=== PATIENT | female | born 1995 | race Hispanic/Latino ===

== ENCOUNTER 2017-07-25 00:51 | Emergency (ER) | payer SELFPAY ==
[2017-07-25 01:07] VITALS: BP 105/64; PULSE 90; RESP 16; TEMP 98.1; O2SAT 98
--- NOTE | 2017-07-25 01:58 | C.PDOC ---
History Of Present Illness Pt was BIBEMS due to public alcohol intoxication. Time Seen by Provider: 07/25/17 01:35 Chief Complaint (Nursing): Substance Abuse History Per: Patient, EMS Onset/Duration Of Symptoms: Unknown (tonight) Current Symptoms Are (Timing): Still Present Suicide/Self Injury Attempted (Context): None Modifying Factor(s): Alcohol Severity: Moderate Associated Symptoms: denies: Suicidal Thoughts, Suicidal Plan Additional History Per: Prior Records Past Medical History Reviewed: Historical Data, Nursing Documentation, Vital Signs Vital Signs: Last Vital Signs Temp 98.1 F 07/25/17 01:03 Pulse 90 07/25/17 01:03 Resp 16 07/25/17 01:03 BP 105/64 07/25/17 01:03 Pulse Ox 98 07/25/17 01:03 - Medical History PMH: No Chronic Diseases Family History: States: Unknown Family Hx - Social History Hx Alcohol Use: Yes Hx Substance Use: No Review Of Systems Except As Marked, All Systems Reviewed And Found Negative. Constitutional: Negative for: Fever Cardiovascular: Negative for: Chest Pain Respiratory: Negative for: Shortness of Breath Gastrointestinal: Negative for: Vomiting, Abdominal Pain Musculoskeletal: Negative for: Neck Pain Neurological: Negative for: Weakness, Numbness, Seizures Psych: Negative for: Psychosis Physical Exam - Physical Exam Appears: Non-toxic, No Acute Distress, Other (AOB, intoxicated) Skin: Normal Color, Warm, Dry, No Rash Head: Atraumatic, Normacephalic Eye(s): bilateral: PERRL Neck: Normal ROM, No Midline Cervical Tenderness, No Step Off Deformity, Supple Cardiovascular: Rhythm Regular Respiratory: Normal Breath Sounds, No Accessory Muscle Use Gastrointestinal/Abdominal: Soft, No Tenderness Extremity: Normal ROM Neurological/Psych: Oriented x3, Normal Motor, Normal Sensation Gait: Steady ED Course And Treatment O2 Sat by Pulse Oximetry: 98 Pulse Ox Interpretation: Normal Progress Note: Pt's friend (Emaunel Mazariegos) came at pt's request and took pt home. Disposition Counseled Patient/Family Regarding: Diagnosis, Need For Followup - Disposition Disposition: HOME/ ROUTINE Disposition Time: 01:57 Condition: STABLE Additional Instructions: Avoid alcohol. Follow up with your doctor. Return to the ER if you develop worsening of symptoms or if you have any other concerns. Instructions: Alcohol Intoxication (ED) Forms: AT Internet (Irish) - Clinical Impression Clinical Impression: Alcohol intoxication
== END 2017-07-25 02:01 | disposition home or self-care (01) ==
LOC: C.ER 00:51
DX: F10.129 Alcohol abuse with intoxication, unspecified (principal); Y90.9 Presence of alcohol in blood, level not specified